=== PATIENT | female | born 1995 | race Caucasian/White ===

== ENCOUNTER 2025-03-17 21:49 | Observation (INO) | payer BC, SELFPAY ==
[2025-03-17 22:11] VITALS: BP 124/70; BMI 27.4
[2025-03-17 22:42] LABS: Hemoglobin 10.8 g/dL (12.0-16.0); Mean Corpuscular Hgb 34.3 pg (27.0-31.0); Mean Corpuscular Volume 95.2 fL (81.0-99.0); Mean Platelet Volume 10.3 fL (7.4-10.4); Platelet Count 158 10^3/uL (130-400); Red Blood Cell Count 3.15 10^6/uL (4.20-5.40); Red Cell Dist. Width 12.4 % (11.5-14.5); White Blood Cell Count 7.9 10^3/uL (4.8-10.8)
[2025-03-17 22:54] LABS: INR 0.86
[2025-03-17 22:55] LABS: APTT 24.2 Sec (23.4-35.0)
[2025-03-17 22:56] LABS: Fibrinogen 414 MG/DL (199-459)
== END 2025-03-18 08:22 | disposition home or self-care (01) ==
LOC: LDRP 21:49
PROVIDERS: ADMITTING PHYSICIAN Student in an Organized Health Care Education/Training Program
DX: O9A.213 Injury, poisoning and certain other consequences of external causes complicating pregnancy, third trimester (principal); Z3A.28 28 weeks gestation of pregnancy; S39.81XA Other specified injuries of abdomen, initial encounter; W01.198A Fall on same level from slipping, tripping and stumbling with subsequent striking against other object, initial encounter; Y93.89 Activity, other specified; Y92.002 Bathroom of unspecified non-institutional (private) residence as the place of occurrence of the external cause; R10.9 Unspecified abdominal pain; O99.013 Anemia complicating pregnancy, third trimester; D64.9 Anemia, unspecified; Z88.0 Allergy status to penicillin; O99.113 Other diseases of the blood and blood-forming organs and certain disorders involving the immune mechanism complicating pregnancy, third trimester
CPT/HCPCS: 59025; 76815; 85027; 85384; 85460; 85610; 85730; 86850; 86900; 86901; G0378

== ENCOUNTER → 2025-04-30 11:23 | Outpatient (REF) | payer BC, SELFPAY | LOC: PNTC 11:23 | PROVIDERS: ATTENDING PHYSICIAN Obstetrics & Gynecology | DX: O43.113 Circumvallate placenta, third trimester (principal) | CPT/HCPCS: 76816 ==

== ENCOUNTER → 2025-05-24 17:20 | Outpatient (REF) | payer BC, SELFPAY | LOC: PNTC 17:20 | PROVIDERS: ATTENDING PHYSICIAN Obstetrics & Gynecology | DX: O36.8190 Decreased fetal movements, unspecified trimester, not applicable or unspecified (principal) | CPT/HCPCS: 59025; 76815 ==

== ENCOUNTER 2025-06-05 07:14 | Inpatient (IN) | payer BC, SELFPAY ==
[2025-06-05] MEDS: LR 1000 IV (07:30)
[2025-06-05 07:58] VITALS: BP 111/79; BMI 29.3
[2025-06-05 08:13] LABS: Hematocrit 32.9 % (37.0-47.0); Hemoglobin 11.6 g/dL (12.0-16.0); Mean Corp Hgb Conc. 35.3 g/dL (33.0-37.0); Mean Corpuscular Volume 95.4 fL (81.0-99.0); Platelet Count 157 10^3/uL (130-400); Red Cell Dist. Width 12.1 % (11.5-14.5)
[2025-06-05] MEDS: BICITRA 30 ML PO (08:41)
[2025-06-05] MEDS: TYLENOL 975 MG PO (08:42)
[2025-06-05] MEDS: ANCEF 10 IV (09:11)
[2025-06-05] MEDS: PITOCIN 30 UNITS/NSS 500 ML IV (10:30)
[2025-06-05] MEDS: METHERGINE INJECTION 0.2 MG IM (10:52)
[2025-06-05] MEDS: TRANEXAMIC ACID 100 IV (10:58)
[2025-06-05] MEDS: CYTOTEC 800 MCG RECTAL (11:18)
[2025-06-05 11:31] VITALS: BP 93/48
[2025-06-05 11:36] LABS: Fibrinogen 321 MG/DL (199-459)
[2025-06-05 11:38] LABS: Hematocrit 25.6 % (37.0-47.0); Hemoglobin 8.9 g/dL (12.0-16.0); Mean Corp Hgb Conc. 34.8 g/dL (33.0-37.0); Mean Corpuscular Volume 95.5 fL (81.0-99.0); Nucleated Red Blood Cells % 0 %; Platelet Count 151 10^3/uL (130-400); Red Cell Dist. Width 12.0 % (11.5-14.5)
[2025-06-05 11:47] VITALS: BP 105/92
[2025-06-05 11:54] LABS: APTT 22.5 Sec (23.4-35.0)
[2025-06-05 11:57] LABS: ALT (SGPT) 14 U/L (0-35); AST (SGOT) 26 U/L (14-36); Albumin 3.0 g/dl (3.5-5.0); Alkaline Phosphatase 92 U/L (38-126); Blood Urea Nitrogen 8 mg/dl (7-17); Calcium 8.2 mg/dl (8.4-10.2); Carbon Dioxide 24 mmol/L (22-30); Chloride 107 mmol/L (98-107); Estimated Creatinine Clearance > 125 ml/min; Glucose 95 mg/dl (70-99); Potassium 4.3 mmol/L (3.5-5.1); Sodium 133 mmol/L (135-145); Total Protein 5.1 g/dl (6.3-8.2); eGFR > 60.00
[2025-06-05] MEDS: GENTAMICIN 60.625 MG IV (12:39)
[2025-06-05] MEDS: MORPHINE SULFATE 4 MG IV (13:26)
[2025-06-05 13:51] VITALS: BP 125/78
[2025-06-05 13:52] VITALS: BP 125/78
[2025-06-05 20:12] LABS: INR 0.94; PT 13.1 Sec (11.4-14.6)
[2025-06-05] MEDS: COLACE 100 MG PO (20:38)
[2025-06-05 20:50] LABS: Hematocrit 22.8 % (37.0-47.0); Hemoglobin 8.2 g/dL (12.0-16.0)
[2025-06-06] MEDS: MYLICON 80 MG PO ×3 (06:25→21:03)
[2025-06-06] MEDS: TYLENOL 650 MG PO ×2 (06:31→22:00)
[2025-06-06 06:50] LABS: Hematocrit 21.2 % (37.0-47.0); Hemoglobin 7.3 g/dL (12.0-16.0); Mean Corp Hgb Conc. 34.4 g/dL (33.0-37.0); Mean Corpuscular Volume 95.9 fL (81.0-99.0); Platelet Count 115 10^3/uL (130-400); Red Cell Dist. Width 13.1 % (11.5-14.5)
--- NOTE | 2025-06-06 07:54 | W.PN.ANS.POP ---
Anesthesia Post Operative
- Anesthesia Post Op Note
Vital Signs Stable-See Nursing Note: Yes
Airway Patent: Yes
Adequate Pain Control: Yes
Change in Mental Status: No
Current Postoperative Nausea & Vomiting: No
Anesthesia Complications: No
General Anesthetic Recall: No
Unplanned Admission: No
Post Op Hydration Adequate: Yes
[2025-06-06] MEDS: COLACE 100 MG PO ×2 (08:29→20:48)
[2025-06-06] MEDS: PRENATAL PLUS 1 TABLET PO (08:29)
[2025-06-06] MEDS: ROXICODONE 5 MG PO ×3 (08:29→21:50)
[2025-06-06] MEDS: FEOSOL 325 MG PO (14:47)
[2025-06-07 06:57] LABS: Hematocrit 20.4 % (37.0-47.0); Hemoglobin 6.9 g/dL (12.0-16.0); Mean Corp Hgb Conc. 33.8 g/dL (33.0-37.0); Mean Corpuscular Volume 97.1 fL (81.0-99.0); Platelet Count 128 10^3/uL (130-400); Red Cell Dist. Width 13.2 % (11.5-14.5)
[2025-06-07] MEDS: TYLENOL 650 MG PO ×3 (07:35→20:19)
[2025-06-07] MEDS: PRENATAL PLUS 1 TABLET PO (07:36)
[2025-06-07] MEDS: MYLICON 80 MG PO (07:36)
[2025-06-07] MEDS: MOTRIN 600 MG PO ×3 (07:36→20:19)
[2025-06-07] MEDS: FEOSOL 325 MG PO (07:36)
[2025-06-07] MEDS: COLACE 100 MG PO ×2 (07:42→20:18)
[2025-06-07 08:34] VITALS: BP 113/64
[2025-06-07 08:50] VITALS: BP 118/69
[2025-06-07 09:42] VITALS: BP 104/60
[2025-06-07 11:03] VITALS: BP 109/59
[2025-06-08] MEDS: MOTRIN 600 MG PO (01:56)
[2025-06-08] MEDS: TYLENOL 650 MG PO (01:57)
[2025-06-08 05:25] LABS: Hematocrit 23.0 % (37.0-47.0); Hemoglobin 7.9 g/dL (12.0-16.0)
--- NOTE | 2025-06-08 10:23 | W.DS.TRANS ---
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
-
Discharge Instructions:
Discharge Diagnosis/Procedures delivery
Activity No strenuous activity
Instructions:
Stand-Alone Forms:
Changes to Home Medications: No
Discharge Medications:
DC Medications w/original date entered in [facility]
prenat.vits,te,ghz-umpq-wgsxp 1 tab PO DAILY 03/17/25
vitamin Z98-rhwig acid 1 tab PO DAILY 06/05/25
acetaminophen 325 mg tablet 650 mg (2 x 325 mg) PO Q4HPRN PRN mild pain #0 tabs 06/08/25
docusate sodium 100 mg capsule 100 mg PO BID #0 caps 06/08/25
ferrous sulfate 325 mg (65 mg iron) tablet (FeroSul) 325 mg PO DAILY #0 tabs 06/08/25
ibuprofen 600 mg tablet 600 mg PO Q6HPRN PRN cramps #30 tabs 06/08/25
sennosides 8.6 mg tablet (Marva-radha) 17.2 mg (2 x 8.6 mg) PO HSPRN PRN constipation #0 tabs 06/08/25
simethicone 80 mg chewable tablet 80 mg PO TIDPRN PRN flatulence #0 tabs 06/08/25
Home Medication Changes
Pending Results: No
Total time spent discharging patient (in min): 20
[2025-06-08] MEDS: M-M-R II 0.5 ML SC (10:58)
[2025-06-08] MEDS: FEOSOL 325 MG PO ×2 (11:01→11:04)
[2025-06-08] MEDS: MYLICON 80 MG PO (11:04)
[2025-06-08] MEDS: COLACE 100 MG PO (11:05)
[2025-06-08] MEDS: PRENATAL PLUS 1 TABLET PO (11:05)
[2025-06-08 13:55] LABS: Syphilis/T. pallidum Ab Reflex Negative (Negative)
== END 2025-06-08 12:27 | disposition home or self-care (01) | DRG 787 ==
LOC: LDRP 07:14
PROVIDERS: Obstetrics & Gynecology; Student in an Organized Health Care Education/Training Program; ADMITTING PHYSICIAN Obstetrics & Gynecology
PROC: 0W3R7ZZ Control Bleeding in Genitourinary Tract, Via Natural or Artificial Opening (ICD-10-PCS; 2025-06-05)
PROC: 30233N1 Transfusion of Nonautologous Red Blood Cells into Peripheral Vein, Percutaneous Approach (ICD-10-PCS; 2025-06-05)
PROC: 10D00Z1 Extraction of Products of Conception, Low, Open Approach (ICD-10-PCS; 2025-06-05)
PROC: 3E0234Z Introduction of Serum, Toxoid and Vaccine into Muscle, Percutaneous Approach (ICD-10-PCS; 2025-06-08)
DX: O34.211 Maternal care for low transverse scar from previous cesarean delivery (principal); O72.1 Other immediate postpartum hemorrhage; O99.12 Other diseases of the blood and blood-forming organs and certain disorders involving the immune mechanism complicating childbirth; D69.59 Other secondary thrombocytopenia; O99.824 Streptococcus B carrier state complicating childbirth; O43.113 Circumvallate placenta, third trimester; O69.81X0 Labor and delivery complicated by cord around neck, without compression, not applicable or unspecified; O90.81 Anemia of the puerperium; D50.0 Iron deficiency anemia secondary to blood loss (chronic); O99.345 Other mental disorders complicating the puerperium; F41.9 Anxiety disorder, unspecified; Z37.0 Single live birth; Z3A.39 39 weeks gestation of pregnancy; Z23 Encounter for immunization
CPT/HCPCS: 80053; 85014; 85018; 85025; 85027; 85384; 85610; 85730; 86780; 86850; 86900; 86901; 86920; 88307; 90707; P9016